=== PATIENT | male | born 1955 | race Two or more races ===

== ENCOUNTER 2022-03-15 14:40 | Inpatient (IN) | payer MEDICAID ==
[~2022-03-15] VITALS: Ht 177.8 cm; Wt 68.0 kg
--- NOTE | 2022-03-15 14:40 | NUR ---
IV ESTABLIHSED L AC 18G. LABS DRAWN AND COLLECTED AT BEDSIDE.
--- NOTE | 2022-03-15 14:43 | NUR ---
BIBRA, S/S OF STROKE , BS = 202
[2022-03-15] MEDS ORDERED: CT SWABBABLE VALVE TRANS SET 1 EA INFUS.SET MC ONE (14:49)
[2022-03-15] MEDS ORDERED: IOHEXOL-350 100 ML VIAL IV ONE (14:49)
[2022-03-15] MEDS ORDERED: IV NS 0.9% 250 ML IV ONE (14:49)
[2022-03-15 15:00] LABS: BASOPHILS # (AUTO) 0.1 K/uL (0.0-0.2); BASOPHILS % (AUTO) 0.9 % (0.0-2.0); EOSINOPHILS % (AUTO) 4.9 % (0.0-6.0); HEMATOCRIT 47 % (39-51); HEMOGLOBIN 15.8 g/dL (13.5-17.5); LYMPHOCYTES # (AUTO) 1.2 K/uL (0.8-4.8); LYMPHOCYTES % (AUTO) 16.4 % (20.0-44.0); MEAN CORPUSCULAR HGB CONC 34 g/dl (31.0-36.0); MEAN CORPUSCULAR VOLUME 90 fL (80-96); MONOCYTES # (AUTO) 0.6 K/uL (0.1-1.30); MONOCYTES % (AUTO) 7.9 % (2.0-12.0); NEUTROPHILS % (AUTO) 69.9 % (43.0-81.0); PLATELET COUNT (AUTO) 214 K/uL (150-450); RED BLOOD CELL COUNT(AUTO) 5.22 MIL/uL (4.5-6.0); WHITE BLOOD COUNT (AUTO) 7.2 K/uL (4.3-11.0)
[2022-03-15] MEDS ORDERED: LABETALOL 20 MG/4 ML VIAL IV ONE (15:00)
[2022-03-15] MEDS ORDERED: LABETALOL HCL IV 100MG VIAL ONE (15:17)
[2022-03-15 15:21] LABS: ALANINE AMINOTRANSFERASE 22 U/L (12-78); ALBUMIN 3.7 g/dL (3.4-5.0); ALKALINE PHOSPHATASE 127 U/L (46-116); ASPARTATE AMINOTRANSFERASE 20 U/L (15-37); BILIRUBIN,DIRECT 0.3 mg/dL (0.0-0.2); BILIRUBIN,TOTAL 1.7 mg/dL (0.2-1.0); CALCIUM, SERUM 8.9 mg/dL (8.5-10.1); CARBON DIOXIDE 30 mmol/L (21-32); CHLORIDE 106 mmol/L (98-107); GLUCOSE 206 mg/dL (74-106); POTASSIUM 3.4 mmol/L (3.5-5.1); SODIUM SERUM 143 mmol/L (136-145); TOTAL PROTEIN, SERUM 7.3 g/dL (6.4-8.2); UREA NITROGEN, BLOOD 14 mg/dL (7-18)
[2022-03-15] MEDS ORDERED: [UNRECOGNIZED DRUG - REMARK] (15:33)
[2022-03-15] MEDS ORDERED: UNK HTN (15:33)
[2022-03-15 15:43] LABS: CREATININE 0.8 mg/dL (0.6-1.3)
[2022-03-15] MEDS ORDERED: ASPIRIN 325 MG TABLET ONE (15:59)
[2022-03-15] MEDS ORDERED: ASPIRIN 325 MG TABLET PO ONE (16:00)
--- NOTE | 2022-03-15 16:23 | NUR ---
COVID TEST COLLECTED AND SENT
[2022-03-15] MEDS ORDERED: DEXTROSE 50%-WATER 50 ML DISP.SYRIN IV PRN (17:00)
[2022-03-15] MEDS: ENOXAPARIN SODIUM 40 MG/0.4 ML DISP.SYRIN SQ SCH (17:18)
[2022-03-15] MEDS ORDERED: POTASSIUM CHLORIDE 20 MEQ TAB.PRT.SR PO ONE (17:30)
[2022-03-15] MEDS: BLOOD SUGAR DIAGNOSTIC 1 EACH STRIP IN SCH ×2 (17:58→21:24)
[2022-03-15 18:36] LABS: THYROID STIMULATING HORMONE 0.541 uIU/mL (0.358-3.74)
--- NOTE | 2022-03-15 19:44 | NUR ---
report given to Brie DIAMOND to continue care.
[2022-03-15 20:45] VITALS: BP 183/93
--- NOTE | 2022-03-15 20:45 | NUR ---
ANODIZE MACHINE OPERATOR OPEN NOTE: RECEIVED PATIENT FROM ER. ALERT AND ORIENTED TIMES 3 WITH O2 2LPM NC SATING AT 96 %. DELAYED SPEECH. DECLINES PAIN OR DISCOMFORT. ABLE TO VOID IN URINAL. TELE READING SINUS RHYTHM FIRST DEGREE AV BLOCK. ASSESSMENTS COMPLETED. MOIST ORAL MUCOSA. FAIR SKIN TURGOR. SEMI-LAWS'S POSITION, REPOSITIONED WITH PILLOWS, BILATERAL HALF SIDE RAIL UP X2, BED IN LOW POSITION, EXIT ALARM ON,BED IS LOCKED, CALL LIGHT IN REACH.
--- NOTE | 2022-03-15 21:03 | NUR ---
wheeled patient via gurney accompanied by RN in no distress. RN assigned at bedside to assume care.
[2022-03-15] MEDS: hydrALAZINE HCL IV 20 MG VIAL IV PRN (21:21)
[2022-03-15 21:30] VITALS: BP 197/97
[2022-03-15] MEDS: SIMVASTATIN 20 MG TABLET PO SCH (22:04)
[2022-03-15 22:30] VITALS: BP 180/92
[2022-03-15 23:00] VITALS: BP 177/89
[2022-03-16] VITALS: BP 165/77
--- NOTE | 2022-03-16 02:00 | NUR ---
TAR DISTILLATION SUPERVISOR CLOSE NOTE: RECEIVED PATIENT FROM ER. ALERT AND ORIENTED TIMES 3 WITH O2 2LPM NC SATING AT 94%. DELAYED SPEECH. DECLINES PAIN OR DISCOMFORT. ABLE TO VOID IN URINAL. TELE READING SINUS GIDEON FIRST DEGREE AV BLOCK. PRN HYDRALAZINE GIVEN X1 IV. MOIST ORAL MUCOSA. FAIR SKIN TURGOR. SEMI-LAWS'S POSITION, REPOSITIONED WITH PILLOWS, BILATERAL HALF SIDE RAIL UP X2, BED IN LOW POSITION, EXIT ALARM ON,BED IS LOCKED, CALL LIGHT IN REACH. PATIENT WAS ABLE TO SPEAK WITH GIRLFRIEND ON CELL PHONE KAYLEIGH IYER. ABLE TO SLEEP WELL. NO S/S OF ASPIRATION NOTED.
--- NOTE | 2022-03-16 02:00 | NUR ---
DR. GARCIA ENGINEER ASSISTANT FOR TAN ISABEL NOTIFIED OF EKG PRINTED REPORT FROM ER, AND RESIDENT TELE MONITOR READING OF SINUS RHYTHM FIRST DEGREE AV BLOCK ON THE 60'S WITH NO NEW ORDERS.
[2022-03-16 04:00] VITALS: BP 155/93
[2022-03-16 07:13] LABS: BASOPHILS # (AUTO) 0.1 K/uL (0.0-0.2); BASOPHILS % (AUTO) 0.8 % (0.0-2.0); EOSINOPHILS % (AUTO) 5.9 % (0.0-6.0); HEMATOCRIT 43 % (39-51); HEMOGLOBIN 14.9 g/dL (13.5-17.5); LYMPHOCYTES # (AUTO) 1.4 K/uL (0.8-4.8); MEAN CORPUSCULAR HGB CONC 34 g/dl (31.0-36.0); MEAN CORPUSCULAR VOLUME 90 fL (80-96); MONOCYTES # (AUTO) 0.6 K/uL (0.1-1.30); MONOCYTES % (AUTO) 8.9 % (2.0-12.0); NEUTROPHILS # (AUTO) 4.3 K/uL (1.8-8.9); NEUTROPHILS % (AUTO) 63.4 % (43.0-81.0); PLATELET COUNT (AUTO) 200 K/uL (150-450); RED BLOOD CELL COUNT(AUTO) 4.84 MIL/uL (4.5-6.0); WHITE BLOOD COUNT (AUTO) 6.8 K/uL (4.3-11.0)
[2022-03-16 07:17] LABS: CALCIUM, SERUM 8.3 mg/dL (8.5-10.1); CREATININE 0.6 mg/dL (0.6-1.3); POTASSIUM 3.1 mmol/L (3.5-5.1)
[2022-03-16 07:41] LABS: BILIRUBIN,URINE NEGATIVE (NEGATIVE); COLOR,URINE YELLOW (YELLOW); LEUKOCYTE ESTERASE ,URINE NEGATIVE (NEGATIVE); NITRITE, URINE NEGATIVE (NEGATIVE); PROTEIN,URINE NEGATIVE (NEGATIVE); UGLUCOSE 100 MG/DL mg/dL (NEGATIVE); UROBILINOGEN,URINE 0.2 EU/dL (0.2)
[2022-03-16 08:00] VITALS: BP 146/86
--- NOTE | 2022-03-16 08:03 | NUR ---
PAUNCH TRIMMER NOTE PATIENT IS IN THE BED ALERT AND ORIENTED X4 ON 2L NS NO SOB NOTED PATIENT HAS RIGHT HAND HEP LOCK IN TACT AND FLUSH WELL, NO COMPLAIN AND PATIENT WAS EATING. SINUS RHYTHM 79 ALL NEEDS ATTENDED CALL LIGHT IS WITHIN REACH, BED LOCKED IN LOWEST POSITION, SAFETY MEASURES IMPLEMENTED AND WILL CONTINUE TO MONITOR CLOSELY.
[2022-03-16] MEDS: PANTOPRAZOLE 40 MG VIAL IV SCH (08:09)
[2022-03-16] MEDS: ASPIRIN EC 325 MG TABLET.DR PO SCH (08:09)
[2022-03-16] MEDS: INSULIN REGULAR, HUMAN 100 UNIT/ML 3 ML VIAL SQ PRN ×4 (08:40→22:08)
[2022-03-16] MEDS: BLOOD SUGAR DIAGNOSTIC 1 EACH STRIP IN SCH ×4 (08:52→22:06)
[2022-03-16 09:19] LABS: BACTERIA,URINE Few /HPF (None Seen); MUCUS,URINE Few /LPF (None Seen); RBC,URINE 0-2 /HPF (0-2); SQUAMOUS EPITHELIAL CELL,UR Few /HPF (None Seen); WBC,URINE 0-2 /HPF (0-3)
[2022-03-16] MEDS ORDERED: POTASSIUM CHLORIDE 20 MEQ TAB.PRT.SR PO SCH (10:00)
--- NOTE | 2022-03-16 10:24 | NUR ---
KEY RINGER NOTE SPEECH THERAPIST AT BEDSIDE OKAY TO CONTINUE CURRENT DIET. MRI CONSENT SIGNED BY PATIENT. PHYSICAL THERAPIST ABLE TO AMBULATE WITH STANDBY ASSISTANCE WILL CONTINUE TO MONITOR ALL NEEDS ATTENDED.
--- NOTE | 2022-03-16 11:18 | NUR ---
RAIL EQUIPMENT OPERATOR NOTE TAKEN TO MRI ORDERED
[2022-03-16 12:00] VITALS: BP 168/91
--- NOTE | 2022-03-16 13:00 | NUR ---
director telemetry note able to eat self not in distress
--- NOTE | 2022-03-16 15:00 | NUR ---
cable television technician note seen by dr dickerson neurologist Addendum: 03/16/22 at 1540 by TONY CABA RN assisted to br,able to make bm keep clean dry ,all needs attended
[2022-03-16 16:00] VITALS: BP 167/82
[2022-03-16] MEDS: ENOXAPARIN SODIUM 40 MG/0.4 ML DISP.SYRIN SQ SCH (16:17)
[2022-03-16] MEDS: LISINOPRIL (20MG) 20 MG TABLET PO SCH (17:12)
--- NOTE | 2022-03-16 18:21 | NUR ---
tele tech note all needs attended ,on 2l nc no sob noted at this time, will cont to monitor call light within reach
--- NOTE | 2022-03-16 19:20 | NUR ---
DRUG SAFETY SPECIALIST OPEN NOTE: ASLEEP, EASILY AROUSED. ALERT AND ORIENTED TIMES 3 WITH O2 2LPM NC SATING AT 96 %. DELAYED SPEECH. DECLINES PAIN OR DISCOMFORT. TELE READING SINUS RHYTHM FIRST DEGREE AV BLOCK 67 HR. MOIST ORAL MUCOSA. FAIR SKIN TURGOR. SEMI-LAWS'S POSITION, REPOSITIONED WITH PILLOWS, BILATERAL HALF SIDE RAIL UP X2, BED IN LOW POSITION, EXIT ALARM ON,BED IS LOCKED, CALL LIGHT IN REACH. DECLINES PAIN OR DISCOMFORT.
[2022-03-16 20:00] VITALS: BP 162/82
[2022-03-16] MEDS: SIMVASTATIN 20 MG TABLET PO SCH (21:49)
[2022-03-17] VITALS: BP 117/55
[2022-03-17 04:00] VITALS: BP 131/62
--- NOTE | 2022-03-17 06:53 | NUR ---
CCNP CLOSING NOTE: ASLEEP, EASILY AROUSED. ALERT AND ORIENTED TIMES 3 WITH O2 2LPM NC SATING AT 96 %. DELAYED SPEECH. ABLE TO AMBULATE TO BATHROOM WITH STAND BY ASSIST. DECLINES PAIN OR DISCOMFORT. TELE READING SINUS GIDEON HR 48. FIRST DEGREE AV BLOCK HR. MOIST ORAL MUCOSA. FAIR SKIN TURGOR. SEMI-LAWS'S POSITION, REPOSITIONED WITH PILLOWS, BILATERAL HALF SIDE RAIL UP X2, BED IN LOW POSITION, EXIT ALARM ON,BED IS LOCKED, CALL LIGHT IN REACH. DECLINES PAIN OR DISCOMFORT. FALL AND SAFETY PRECAUTIONS MAINTAINED. Addendum: 03/17/22 at 0656 by EVER SANDHU RN BLOOD GLUCOSE MONITORED AT COVERED ORDERED. IV SITES ON LEFT AC AND RIGHT POSTERIOR HAND WITH NO S/S OF COMPLICATIONS. PATENT.
--- NOTE | 2022-03-17 08:10 | NUR ---
DIRECTOR OF HOSPITALITY OPENING NOTE RECEIVED PT IN BED ASLEEP, EASILY AROUSED. ALERT AND ORIENTED X 3 WITH O2 2LPM NC SATING AT 94%. LAO SPEAKING, ABLE TO MAKE NEEDS KNOWN. DELAYED SPEECH. DECLINES PAIN OR DISCOMFORT AT THIS TIME. TELE READING SINUS RHYTHM FIRST DEGREE AV BLOCK 67 HR. MOIST ORAL MUCOSA. FAIR SKIN TURGOR. SEMI-LAWS'S POSITION, SIDE RAIL UP X2, BED IN LOW POSITION, EXIT ALARM ON,BED IS LOCKED, CALL LIGHT WITHIN REACH. WILL CONTINUE TO MONITOR THROUGHOUT SHIFT
[2022-03-17 08:41] VITALS: BP 145/76
--- NOTE | 2022-03-17 09:14 | NUR ---
RN NOTE PHYSICAL THERAPY ARRIVED WITH USE OF 2 WHEELED WALKER.
[2022-03-17] MEDS: BLOOD SUGAR DIAGNOSTIC 1 EACH STRIP IN SCH ×4 (09:54→21:53)
[2022-03-17] MEDS: PANTOPRAZOLE 40 MG VIAL IV SCH (10:08)
[2022-03-17] MEDS: INSULIN REGULAR, HUMAN 100 UNIT/ML 3 ML VIAL SQ PRN ×4 (10:08→21:58)
[2022-03-17] MEDS: ASPIRIN EC 325 MG TABLET.DR PO SCH (10:09)
[2022-03-17] MEDS: LISINOPRIL (20MG) 20 MG TABLET PO SCH (10:09)
[2022-03-17 12:00] VITALS: BP 164/80
--- NOTE | 2022-03-17 14:35 | NUR ---
SS Consult: SS Consult requested for code stroke. The pt. is a 66-year-old male who was admitted to [facility] due to Stroke. SW met with pt. bedside. SW completed interview in Moroccan. The pt. was alert & oriented x 4 and makes good eye contact. The pt. appears well-groomed. Pt. denies SI/HI and denies hallucinations. Pt. stated that he lives at home [[address] [place] [address]] with , Natalie Whelan [phone] and his step-daughter, Dianne. Pt. states that he came into the hospital after he was having difficulty speaking. SW provided empowerment after stroke educational material and pt. accepted it. Pt. denies drug or alcohol use. Pt. denies history of mental health illness. Pt. stated his support system is his . Plan: Pt. stated he will be returning home [home [[address] [place], [place] [id number]] with , Natalie Whelan [phone] and his step-daughter, Dianne will be providing transportation when ready for discharge. SW provided stroke empowerment resources. Pt. accepted them. Pt. scored a 4 on the post stroke depression scale SW notified patients nurse.
[2022-03-17 16:00] VITALS: BP 174/90
[2022-03-17] MEDS: ENOXAPARIN SODIUM 40 MG/0.4 ML DISP.SYRIN SQ SCH (18:03)
--- NOTE | 2022-03-17 20:38 | NUR ---
PARTS CONTROL CLERK CLOSING NOTE PT IN BED, EASILY AROUSED. ALERT AND ORIENTED X 3 WITH O2 2LPM NC SATING AT 97%. HONDURAN SPEAKING, ABLE TO MAKE NEEDS KNOWN. DELAYED SPEECH. DECLINES PAIN OR DISCOMFORT AT THIS TIME. TELE READING SINUS RHYTHM WITH HR OF 81. ALL NEEDS MET. ALL SAFETY MEASURES IN PLACE. SEMI-LAWS'S POSITION, SIDE RAIL UP X2, BED IN LOW POSITION, EXIT ALARM ON, BED IS LOCKED, CALL LIGHT WITHIN REACH. WILL ENDORSE CONTINUITY OF CARE TO SWEAT BAND SEWER
[2022-03-17 21:27] VITALS: BP 166/89
[2022-03-17] MEDS: SIMVASTATIN 20 MG TABLET PO SCH (21:57)
[2022-03-18] VITALS: BP 171/88
[2022-03-18 04:00] VITALS: BP 157/87
--- NOTE | 2022-03-18 07:10 | NUR ---
REPORTING MANAGER OPENING NOTE RECEIVED PT IN BED ASLEEP, EASILY AROUSED. ALERT AND ORIENTED X 3 , ON ROOM AIR SATING AT 94%. SWEDISH SPEAKING, ABLE TO MAKE NEEDS KNOWN. DELAYED SPEECH. DECLINES PAIN OR DISCOMFORT AT THIS TIME. TELE READING SINUS RHYTHM FIRST DEGREE AV BLOCK 67 HR.PATIENT HAS IV ACCESS ON LAC 18 G , FLUSHING FREELY MOIST ORAL MUCOSA. FAIR SKIN TURGOR. SEMI-LAWS'S POSITION, SIDE RAIL UP X2, BED IN LOW POSITION, EXIT ALARM ON,BED IS LOCKED, CALL LIGHT WITHIN REACH. WILL CONTINUE TO MONITOR THROUGHOUT SHIFT
--- NOTE | 2022-03-18 07:32 | NUR ---
RN CLOSING NOTE A/OX4. NOW ON ROOM AIR. NO S/S SOB NOTED. NO C/O PAIN. SINUS RHYTHM WITH 1ST DEGREE AVB ON THE MONITOR. PATIENT WAS ABLE TO AMBULATE TO RESTROOM WITH STAND BY ASSIST. EDUCATED ON STROKE AND BP MANAGEMENT WELL CHOLESTEROL. PENDING DC PLANNING.
[2022-03-18 08:00] VITALS: BP 165/87
[2022-03-18] MEDS: BLOOD SUGAR DIAGNOSTIC 1 EACH STRIP IN SCH ×3 (08:42→17:34)
[2022-03-18] MEDS: LISINOPRIL (20MG) 20 MG TABLET PO SCH (08:45)
[2022-03-18] MEDS: PANTOPRAZOLE 40 MG VIAL IV SCH (08:45)
[2022-03-18] MEDS: ASPIRIN EC 325 MG TABLET.DR PO SCH (08:47)
[2022-03-18] MEDS ORDERED: LISI20TA30 PO (11:33)
[2022-03-18] MEDS ORDERED: SIMV-46 PO (11:33)
[2022-03-18] MEDS ORDERED: ASPI-1100 PO (11:33)
[2022-03-18] MEDS: hydrALAZINE HCL IV 20 MG VIAL IV PRN (11:46)
[2022-03-18] MEDS: INSULIN REGULAR, HUMAN 100 UNIT/ML 3 ML VIAL SQ PRN ×2 (11:53→18:00)
[2022-03-18 12:00] VITALS: BP 185/85
[2022-03-18 16:00] VITALS: BP 139/88
[2022-03-18] MEDS: ENOXAPARIN SODIUM 40 MG/0.4 ML DISP.SYRIN SQ SCH (17:34)
--- NOTE | 2022-03-18 18:20 | NUR ---
DC NOTES PT DC'D TO HOME IN STABLE CONDITION. ALL PAPERWORKS SIGNED. AND SON AT BEDSIDE. PT LEFT UNIT VIA WHEELCHAIR IN STABLE CONDITION.
--- NOTE | 2022-03-18 18:28 | NUR ---
rn note patient got discharged from the [facility] , today afternoon patient had eleveted BP 186/85 after medications administered went doen to 135/[address] charles clear patient for discharge . written and verbal doscharge instructions provided , patient also was instructed ton s/sf HTN , measures to prevent , manage .Patient and his spouse verbalized understanding
[2022-03-19] MEDS ORDERED: PANTOPRAZOLE 40 MG TABLET.DR PO SCH (07:30)
== END 2022-03-18 18:00 | disposition home health service (06) | DRG 45 ==
LOC: ER 14:43 → TELE1 19:01 → EDBD 19:01
PROVIDERS: ADMIT Nurse Practitioner Acute Care; ATTEND Internal Medicine
DX: I63.9 Cerebral infarction, unspecified (principal); D68.69 Other thrombophilia; E11.9 Type 2 diabetes mellitus without complications; E87.6 Hypokalemia; I16.0 Hypertensive urgency; Z20.822 Contact with and (suspected) exposure to COVID-19; I10 Essential (primary) hypertension; E78.5 Hyperlipidemia, unspecified; R47.1 Dysarthria and anarthria; E66.01 Morbid (severe) obesity due to excess calories; Z68.39 Body mass index [BMI] 39.0-39.9, adult; J98.11 Atelectasis
CPT/HCPCS: 36415; 70450-TC; 70496-TC; 70551-TC; 71045-TC; 80048-TC; 80061-TC; 80076-TC; 81001; 82962-TC; 83880; 84443-TC; 84484-TC; 85025-TC; 85652-TC; 85730-TC; 92507-TC; 92521; 92526; 92611-TC; 93307-TC; 93880-TC; 94799-TC; 97110-TC; 97116-TC; 97530-TC; C9113; C9803; G0378; J0360; J1650; J1815; J3490; J7050; Q9967

== ENCOUNTER → 2024-12-20 | Emergency (ER) | payer MEDICAID, OTHER ==
[~2024-12-20] VITALS: Ht 170.2 cm; Wt 113.4 kg
[~2024-12-20] MED LIST: ASPI-1100 PO; HYDR-4303 PO; LISI20TA30 PO; MORPHINE SULFATE INJ 4 MG/ML DISP.SYRIN ONE; ONDANSETRON HCL/PF 4 MG/2 ML VIAL ONE; SIMV-46 PO; UNK HTN; [UNRECOGNIZED DRUG - REMARK]
[2024-12-20 16:30] VITALS: BP 161/91; TEMP 98.3; O2SAT 96
[2024-12-20] MEDS: MORPHINE SULFATE INJ 2 MG/ML DISP.SYRIN IV ONE (17:30)
[2024-12-20] MEDS: IV NS 0.9% 1,000 ML BAG IV ONE (17:30)
[2024-12-20] MEDS: ONDANSETRON HCL/PF 4 MG/2 ML VIAL IV ONE (17:30)
== END | disposition home or self-care (01) ==
LOC: ER 16:10
DX: S42.254A Nondisplaced fracture of greater tuberosity of right humerus, initial encounter for closed fracture (principal); S00.81XA Abrasion of other part of head, initial encounter; I10 Essential (primary) hypertension; E11.9 Type 2 diabetes mellitus without complications; Z79.82 Long term (current) use of aspirin; Z79.899 Other long term (current) drug therapy; W01.0XXA Fall on same level from slipping, tripping and stumbling without subsequent striking against object, initial encounter; Y93.89 Activity, other specified; Y92.89 Other specified places as the place of occurrence of the external cause; Y99.8 Other external cause status
CPT/HCPCS: 99285; 96374; 70450; 96361; 96375; 73030 ×2; J2270; J2405; J7030